=== PATIENT | male | born 1965 | race African-American/Black ===

== ENCOUNTER 2016-10-06 06:43 | Emergency (ER) | payer OTHER ==
[2016-10-06] MEDS ORDERED: LIDOCAINE 1% INJ-PF (10 MG/ML) 30 ML SDV INJ ONE (08:18)
--- NOTE | 2016-10-06 10:31 | ER Document Report ---
ED Skin Rash/Insect Bite/Abscs - General Chief Complaint: Abscess Stated Complaint: BACK PAIN Mode of Arrival: Ambulatory Information source: Patient Notes: 51 y/o M presents to ED c/o abscess to upper back. Pt reports noted pimple-like area to upper back approximately 3 weeks ago which has persisted and slowly increased in size. Reports yesterday evening his "popped" it and white foul smelling drainage came out of it. States area is plug overwrap machine tender and intermittently draining. Denies fever, chest pain, or sob. States last tetanus vaccination was approximately 6 months ago. TRAVEL OUTSIDE OF THE [place] IN LAST 30 DAYS: No - HPI Patient complains to provider of: Tender/swollen area Quality of pain: Achy Severity: Mild Pain Level: 1 Skin Character: Abscess, Erythema, Tenderness Skin Temperature: Warm Quality of rash: Painful Similar symptoms previously: Yes Recently seen / treated by doctor: No - Related Data Allergies/Adverse Reactions: No Known Allergies Allergy (Unverified 10/06/16 07:59) Past Medical History - General Information source: Patient - Social History Smoking Status: Never Smoker Chew tobacco use (# tins/day): No Frequency of alcohol use: None Drug Abuse: None Lives with: Family Family History: Reviewed & Not Pertinent Patient has suicidal ideation: No Patient has homicidal ideation: No - Past Medical History Cardiac Medical History: Reports: Hx Hypertension Renal/ Medical History: Denies: Hx Peritoneal Dialysis Surgical Hx: Negative - Immunizations Hx Diphtheria, Pertussis, Tetanus Vaccination: Yes Review of Systems - Review of Systems Constitutional: No symptoms reported EENT: No symptoms reported Cardiovascular: No symptoms reported Respiratory: No symptoms reported Gastrointestinal: No symptoms reported Genitourinary: No symptoms reported Male Genitourinary: No symptoms reported Musculoskeletal: No symptoms reported Skin: See HPI Hematologic/Lymphatic: No symptoms reported Neurological/Psychological: No symptoms reported -: Yes All other systems reviewed and negative Physical Exam - Vital signs Vitals: Temp Pulse Resp BP Pulse Ox 97.7 F 80 18 154/88 H 99 10/06/16 06:48 10/06/16 06:48 10/06/16 06:48 10/06/16 06:48 10/06/16 06:48 - General General appearance: Appears well, Alert In distress: None - HEENT Head: Normocephalic, Atraumatic Eyes: Normal Pupils: PERRL - Respiratory Respiratory status: No respiratory distress Chest status: Nontender Breath sounds: Normal Chest palpation: Normal - Cardiovascular Rhythm: Regular Heart sounds: Normal auscultation Murmur: No Pulses: Normal: Radial Normal capillary refill: Yes - Abdominal Inspection: Normal Distension: No distension Bowel sounds: Normal Tenderness: Nontender Organomegaly: No organomegaly - Back Back: Normal, Nontender, Other - pt has small approximately 2 cm diameter raised area of tenderness and slight central fluctuance. no active drainage or surrounding cellulitis. - Extremities General upper extremity: Normal inspection, Nontender, Normal color, Normal ROM , Normal temperature General lower extremity: Normal inspection, Nontender, Normal color, Normal ROM , Normal temperature, Normal weight bearing - Neurological Neuro grossly intact: Yes Cognition: Normal Orientation: AAOx4 Barry Coma Scale Eye Opening: Spontaneous Kwesi Coma Scale Verbal: Oriented Kwesi Coma Scale Motor: Obeys Commands Barry Coma Scale Total: 15 Speech: Normal Motor strength normal: LUE, RUE, LLE, RLE Sensory: Normal - Skin Skin Temperature: Warm Skin Moisture: Dry Skin Color: Normal Course - Re-evaluation Re-evalutation: 10/06/16 10:30 Patient hemodynamically stable, in no distress, afebrile. Small abscess I&D'd. Noted no drainage to culture and small abscess not large enough to pack. No surrounding cellulitis. Patient appears stable for discharge and agrees with home care, follow-up, and ED return precautions. - Vital Signs Vital signs: Temp Pulse Resp BP Pulse Ox 97.8 F 76 16 136/88 H 98 10/06/16 10:48 10/06/16 10:48 10/06/16 10:48 10/06/16 10:48 10/06/16 10:48 Procedures - Incision and Drainage Right Upper Back Time completed: 10:30 Type: Simple Anesthetic type: 1% Lidocaine mL's of anesthetic: 3 Blade size: 11 I&D procedure: Betadine prep applied, Shurclens applied, Sterile dressing applied Incision Method: Incision made by scalpel Amount/type of drainage: scant purulent Adult Front & Back picture: 1 - abscess Discharge - Discharge Clinical Impression: Abscess Condition: Stable Disposition: HOME, SELF-CARE Additional Instructions: ABSCESS: You have an abscess (boil). This a pus-forming infection, usually due to staph. Some boils may be left to drain on their own, but most require lancing. From the time the tender lump first appears, it may be three or four days before the abscess is ready to raffi. Local heat and rest help at this stage of treatment. An antibiotic may prevent spread of the infection. Once the abscess is opened, packing may be placed into it. This is done so pus is not sealed inside by premature closure of the cavity. The packing will be removed at your follow-up visit or you may be advised to remove it yourself at home. Sometimes this packing must be replaced a few times during healing. The wound will heal with surprisingly little scar. Depending on the size and location of an abscess, healing can take one to four weeks. You may shower and wash the area around the incision site two or three times a day. Antibiotics may be prescribed, but are usually not necessary after an abscess has been drained. If you develop fever, chills, worsening pain, or increasing swelling in the area, call the doctor or return immediately. CEPHALEXIN: The antibiotic you've been prescribed is a member of the cephalosporin class. This type of antibiotic covers a wide variety of infections, including those of the skin, lungs, and urinary tract. It's useful for staph infections. This antibiotic is slightly similar to the penicillin family. In rare cases , a person who is allergic to penicillin will also be allergic to this medication. If you have had a severe allergic reaction to penicillin, and have not taken this antibiotic since that time, notify your doctor. Antibiotics which cover many germs ("broad spectrum" antibiotics) are more likely to cause diarrhea or "yeast" infections. Women prone to vaginal yeast problems may suffer an attack after taking this antibiotic. In infants, oral thrush (white spots "stuck" on the cheek) or yeast diaper rash may result. See your doctor if these problems occur. Call at once if you develop itching, hives , shortness of breath, or lightheadedness. Anti-Inflammatory Medication You have received a prescription for an antiinflammatory agent. This is an excellent, safe drug for pain control. In addition, it has potent antiinflammatory effects which are beneficial, especially in the treatment of injuries, arthritis, or tendonitis. It's best to take this medicine with food. Persons with ulcer disease or allergy to aspirin should notify their physician of this before taking this drug. Take the medication exactly as prescribed. Don't take additional doses unless instructed to do so by your doctor. If you develop wheezing, shortness of breath, hives, faintness, stomach pain, vomiting, or dark black stools, return for re-evaluation at once. FOLLOW-UP CARE: Follow-up with your primary care provider in 1-2 days. If you experience worsening or a significant change in your symptoms, return to the Emergency Department at any time for re-evaluation. Prescriptions: Cephalexin Monohydrate [Keflex 500 mg Capsule] 500 mg PO Q6H 5 Days Naproxen [Naprosyn 375 Mg Tablet] 375 mg PO BIDP PRN #10 tablet PRN Reason: Forms: Elevated Blood Pressure, Return to Work Referrals: LONNY ADAMS MD [Primary Care Provider] - Follow up tomorrow
[2016-10-06 10:56] VITALS: BP 136/88
== END 2016-10-06 10:57 | disposition home or self-care (01) ==
LOC: ER 06:43
PROC: 0H96XZZ Drainage of Back Skin, External Approach (ICD-10-PCS; principal; 2016-10-06)
DX: L02.212 Cutaneous abscess of back [any part, except buttock and flank] (principal); I10 Essential (primary) hypertension
CPT/HCPCS: 99283; 10060; J3490

== ENCOUNTER 2016-11-25 10:08 | Emergency (ER) | payer OTHER ==
[2016-11-25 10:19] VITALS: BP 120/74
--- NOTE | 2016-11-25 10:30 | ER Document Report ---
ED Medical Screen (RME) - General Chief Complaint: Back Pain Stated Complaint: BACK PAIN /NUMB FINGERS Time Seen by Provider: 11/25/16 10:26 Mode of Arrival: Ambulatory Information source: Patient Notes: Patient presents emergency department with complaints of upper generalized back pain. He also reports that his second and third finger on his right hand are numb at times. 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 Denies trauma. Denies history of neck trauma, denies neck pain. 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 Denies other symptoms such as fever vomiting diarrhea. Denies urinary or bowel incontinence or retention. TRAVEL OUTSIDE OF THE [place] IN LAST 30 DAYS: No - Related Data Allergies/Adverse Reactions: No Known Allergies Allergy (Unverified 10/06/16 07:59) Past Medical History - Past Medical History Cardiac Medical History: Reports: Hx Hypertension Renal/ Medical History: Denies: Hx Peritoneal Dialysis Musculoskeltal Medical History: Reports Hx Arthritis - Immunizations Hx Diphtheria, Pertussis, Tetanus Vaccination: No Physical Exam - Vital signs Vitals: Temp Pulse Resp BP Pulse Ox 97.9 F 83 18 120/74 97 11/25/16 10:16 11/25/16 10:16 11/25/16 10:16 11/25/16 10:16 11/25/16 10:16 Course - Vital Signs Vital signs: Temp Pulse Resp BP Pulse Ox 97.9 F 83 18 120/74 97 11/25/16 10:16 11/25/16 10:16 11/25/16 10:16 11/25/16 10:16 11/25/16 10:16
--- NOTE | 2016-11-25 10:54 | ER Document Report ---
HPI - HPI Patient complains to provider of: generalized upper back pain Onset: Other - chronic Quality of pain: Achy Severity: Severe Pain Level: 4 Context: Patient presents to emergency department with complaints of generalized upper back pain. The back pain seemed to get worse after recent treatment for an abscess. Reports he has had the back pain for a while. It started in the left shoulder, moved to the right shoulder and now it is generalized. Reports he works lifting his arms a lot. Denies recent trauma , reports hx of fractured collar when he played football in high school. Denies other sx such as f/n/v/d. Reports the fingertips of 2 & 3 on the right hand are numb. He his right handed and works with his hands a lot. Denies hx of neck trauma. Associated Symptoms: None Exacerbated by: Denies Relieved by: Denies Similar symptoms previously: Yes Recently seen / treated by doctor: No - REPRODUCTIVE Reproductive: DENIES: : - DERM Skin Color: Normal Past Medical History - General Information source: Patient - Social History Smoking Status: Current Some Day Smoker Cigarette use (# per day): Yes Frequency of alcohol use: Occasional Drug Abuse: None Occupation: [employer] Lives with: Family Family History: Reviewed & Not Pertinent Patient has suicidal ideation: No Patient has homicidal ideation: No - Past Medical History Cardiac Medical History: Reports: Hx Hypertension Renal/ Medical History: Denies: Hx Peritoneal Dialysis Musculoskeltal Medical History: Reports Hx Arthritis Surgical Hx: Negative - Immunizations Hx Diphtheria, Pertussis, Tetanus Vaccination: No Vertical Provider Document - CONSTITUTIONAL Agree With Documented VS: Yes Exam Limitations: No Limitations General Appearance: WD/WN, No Apparent Distress - nontoxic looking - INFECTION CONTROL TRAVEL OUTSIDE OF THE [place] IN LAST 30 DAYS: No - HEENT HEENT: Atraumatic, Normocephalic - NECK Neck: Normal Inspection, Supple. negative: Lymphadenopathy-Left, Lymphadenopathy-Right - RESPIRATORY Respiratory: Breath Sounds Normal, No Respiratory Distress O2 Sat by Pulse Oximetry: 97 - CARDIOVASCULAR Cardiovascular: Regular Rate, Regular Rhythm - GI/ABDOMEN Gastrointestinal: Abdomen Soft, Abdomen Non-Tender - REPRODUCTIVE Male Genitalia: Normal Inspection - BACK Back: Normal Inspection - no obvious defomity, good distal movement and sensation, no erythema/warmth/swelling c/o bilateral trapezius ttp and movement - MUSCULOSKELETAL/EXTREMETIES Musculoskeletal/Extremeties: MAEW, FROM, Non-Tender - finger tips to right hand , 2 & 3 calloused, no open wounds - NEURO Level of Consciousness: Awake, Alert, Appropriate Motor/Sensory: No Motor Deficit, Other - symetric facial expressions, clear voice, 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 No sign of CVA, good clear voice, no weakness, good shearer helper, felt me palpating his finger tips. The patient presents with generalized upper back pain without signs of spinal cord compression, cauda equine syndrome, infection, aneurysm, or other serious etiology. The patient is neurologically intact. The patient has good distal movement and sensation, denies urinary or bowel incontinence/retention. Given the extremely low risk of these diagnosis, further testing and evaluation for these possibilities does not appear to be indicated at this time. The patient has been instructed to return if the symptoms worsen or change in anyway. - Vital Signs Vital signs: Temp Pulse Resp BP Pulse Ox 97.9 F 83 18 120/74 97 11/25/16 10:16 11/25/16 10:16 11/25/16 10:16 11/25/16 10:16 11/25/16 10:16 Discharge - Discharge Clinical Impression: Upper back pain Condition: Stable Disposition: HOME, SELF-CARE Instructions: Muscle Strain ([facility]), Muscle Relaxers ([facility]) Additional Instructions: *You have been evaluated for generalized upper back pain *Take medication as prescribed *Rest *Follow up with your primary care provider this week for recheck *Return to ED for worsening condition, changes, needs Prescriptions: Cyclobenzaprine HCl [Flexeril 10 Mg Tablet] 10 mg PO TID #30 tablet Forms: Return to Work Referrals: LONNY ADAMS MD [Primary Care Provider] - Follow up as needed
== END 2016-11-25 11:19 | disposition home or self-care (01) ==
LOC: ER 10:08
DX: M54.89 Other dorsalgia (principal); F17.210 Nicotine dependence, cigarettes, uncomplicated; I10 Essential (primary) hypertension
CPT/HCPCS: 99283

== ENCOUNTER 2016-12-14 19:17 | Emergency (ER) | payer OTHER ==
[2016-12-14 19:47] VITALS: BP 111/55
[2016-12-14] MEDS ORDERED: KETOROLAC TROMETHAMINE 60 MG/2 ML SDV IM ONE (20:52)
--- NOTE | 2016-12-14 20:56 | ER Document Report ---
ED Neck/Back Problem - General Chief Complaint: Back Pain Stated Complaint: BACK PAIN Time Seen by Provider: 12/14/16 20:45 Mode of Arrival: Ambulatory Information source: Patient Notes: Patient is a 51-year-old male who presents to the ER today for right shoulder, arm pain that he has been here for before. Patient states that he took all of his muscle relaxers that he has received here but that he has had no relief. He denies any injury. He admits to numbness and tingling in the fingers and most of his pain concentrated in the shoulder and elbow. He has not seen anyone else for this. He states that this has been going on for 3-4 months. TRAVEL OUTSIDE OF THE [place] IN LAST 30 DAYS: No - Related Data Allergies/Adverse Reactions: No Known Allergies Allergy (Unverified 10/06/16 07:59) Past Medical History - General Information source: Patient - Social History Smoking Status: Current Every Day Smoker Family History: Reviewed & Not Pertinent - Past Medical History Cardiac Medical History: Reports: Hx Hypertension Renal/ Medical History: Denies: Hx Peritoneal Dialysis Musculoskeltal Medical History: Reports Hx Arthritis - Immunizations Hx Diphtheria, Pertussis, Tetanus Vaccination: No Review of Systems - Review of Systems Constitutional: No symptoms reported EENT: No symptoms reported Cardiovascular: No symptoms reported Respiratory: No symptoms reported Gastrointestinal: No symptoms reported Genitourinary: No symptoms reported Male Genitourinary: No symptoms reported Musculoskeletal: See HPI Skin: No symptoms reported Hematologic/Lymphatic: No symptoms reported Neurological/Psychological: No symptoms reported Physical Exam - Vital signs Vitals: Temp Pulse Resp BP Pulse Ox 97.7 F 95 16 111/55 L 95 12/14/16 19:45 12/14/16 19:45 12/14/16 19:45 12/14/16 19:45 12/14/16 19:45 - Notes Notes: PHYSICAL EXAMINATION: GENERAL: Well-appearing and in no acute distress. HEAD: Atraumatic, normocephalic. EYES: Pupils equal round and reactive to light, extraocular movements intact, sclera anicteric, conjunctiva are normal. NECK: Normal range of motion, supple without lymphadenopathy LUNGS: CTAB and equal. No wheezes rales or rhonchi. HEART: Regular rate and rhythm without murmurs ABDOMEN: Soft, no tenderness. No guarding, no rebound BACK: no vertebral tenderness, normal ROM GI/: no CVA tenderness EXTREMITIES: Normal range of motion, nontender to the entire right arm shoulder , hand, no pitting edema. No cyanosis. NEUROLOGICAL: Cranial nerves grossly intact. Normal sensory/motor exams. PSYCH: Normal mood, normal affect. SKIN: Warm, Dry, normal turgor, no rashes or lesions noted Course - Vital Signs Vital signs: Temp Pulse Resp BP Pulse Ox 97.7 F 95 16 111/55 L 95 12/14/16 19:45 12/14/16 19:45 12/14/16 19:45 12/14/16 19:45 12/14/16 19:45 Discharge - Discharge Clinical Impression: Numbness of right hand Right shoulder pain Qualifiers: Chronicity: acute Qualified Code(s): M25.511 - Pain in right shoulder Condition: Stable Disposition: HOME, SELF-CARE Additional Instructions: Return immediately for any new or worsening symptoms. Follow up with orthopedics, call tomorrow to make followup appointment. Orthopedic Office [facility] [address] [place] [address] [place] [id number] phone: [phone] Prescriptions: Ibuprofen [Motrin 800 mg Tablet] 800 mg PO Q8H PRN #30 tab PRN Reason:
== END 2016-12-14 22:04 | disposition home or self-care (01) ==
LOC: ER 19:17
DX: M25.511 Pain in right shoulder (principal); R20.0 Anesthesia of skin; R20.2 Paresthesia of skin; M25.529 Pain in unspecified elbow; F17.200 Nicotine dependence, unspecified, uncomplicated; I10 Essential (primary) hypertension
CPT/HCPCS: 99283; 96374; J1885

== ENCOUNTER 2017-05-31 16:40 | Emergency (ER) | payer SELFPAY | END 2017-05-31 16:45 | disposition left against medical advice (07) | LOC: ER 16:40 | DX: Z53.21 Procedure and treatment not carried out due to patient leaving prior to being seen by health care provider (principal) ==

== ENCOUNTER 2017-06-02 22:24 | Emergency (ER) | payer SELFPAY ==
--- NOTE | 2017-06-03 00:36 | ER Document Report ---
ED Medical Screen (RME) - General Chief Complaint: Penile Pain Stated Complaint: PENIS PAIN Time Seen by Provider: 06/03/17 00:34 Mode of Arrival: Ambulatory Information source: Patient Notes: 51-year-old male presents to ED for 2 weeks history of pain in penis with clear discharge. He has had unprotected sex recently. States he smokes 7-8 cigarettes a day drinks 12 beers 4-5 times a week. He then stated that he had some indigestion on his belly, burped, passed gas, and then leak but he has been doing this for 2 weeks. I have greeted and performed a rapid initial assessment of this patient. A comprehensive ED assessment and evaluation of the patient, analysis of test results and completion of medical decision making process will be conducted by an additional ED providers. TRAVEL OUTSIDE OF THE [place] IN LAST 30 DAYS: No - Related Data Allergies/Adverse Reactions: No Known Allergies Allergy (Unverified 10/06/16 07:59) Past Medical History - Past Medical History Cardiac Medical History: Reports: Hx Hypertension Renal/ Medical History: Denies: Hx Peritoneal Dialysis Musculoskeltal Medical History: Reports Hx Arthritis - Immunizations Hx Diphtheria, Pertussis, Tetanus Vaccination: No Physical Exam - Vital signs Vitals: Temp Pulse Resp BP Pulse Ox 97.7 F 86 18 115/71 95 06/02/17 22:54 06/02/17 22:54 06/02/17 22:54 06/02/17 22:54 06/02/17 22:54 Course - Vital Signs Vital signs: Temp Pulse Resp BP Pulse Ox 97.7 F 86 18 115/71 95 06/02/17 22:54 06/02/17 22:54 06/02/17 22:54 06/02/17 22:54 06/02/17 22:54
[2017-06-03] MEDS ORDERED: LIDOCAINE 1% INJ-PF (10 MG/ML) 30 ML SDV INFIL ONE (02:05)
[2017-06-03] MEDS ORDERED: CEFTRIAXONE INJ 250 MG VIAL IM ONE (02:05)
[2017-06-03] MEDS ORDERED: AZITHROMYCIN 250 MG TABLET PO ONE (02:05)
--- NOTE | 2017-06-03 02:08 | ER Document Report ---
ED General - General Chief Complaint: Penile Pain Stated Complaint: PENIS PAIN Time Seen by Provider: 06/03/17 00:34 Mode of Arrival: Ambulatory Notes: Patient is a 51-year-old male who presents with 2 weeks of penile discharge and burning discomfort. Patient notes that the symptoms started after he had unprotected sexual intercourse with an unfamiliar partner. Symptoms have been constant and unchanged since onset. He notes that there is a moderate, constant , burning discomfort to the urethral meatus. He intermittently has a whitish, yellow discharge from the urethral meatus. He denies any fever or constitutional symptoms. He denies any abdominal pain. No history of similar symptoms in the past. TRAVEL OUTSIDE OF THE [place] IN LAST 30 DAYS: No - Related Data Allergies/Adverse Reactions: No Known Allergies Allergy (Verified 06/03/17 01:27) Past Medical History - General Information source: Patient - Social History Smoking Status: Never Smoker Frequency of alcohol use: None Drug Abuse: None Lives with: Family Family History: Reviewed & Not Pertinent Patient has suicidal ideation: No Patient has homicidal ideation: No - Past Medical History Cardiac Medical History: Reports: Hx Hypertension Renal/ Medical History: Denies: Hx Peritoneal Dialysis Musculoskeltal Medical History: Reports Hx Arthritis - Immunizations Hx Diphtheria, Pertussis, Tetanus Vaccination: No Review of Systems - Review of Systems Notes: Constitutional: Negative for fever. HENT: Negative for sore throat. Eyes: Negative for visual changes. Cardiovascular: Negative for chest pain. Respiratory: Negative for shortness of breath. Gastrointestinal: Negative for abdominal pain, vomiting or diarrhea. Genitourinary: Positive for dysuria and penile discharge Musculoskeletal: Negative for back pain. Skin: Negative for rash. Neurological: Negative for headaches, weakness or numbness. 10 point ROS negative except as marked above and in HPI. Physical Exam - Vital signs Vitals: Temp Pulse Resp BP Pulse Ox 97.7 F 86 18 115/71 95 06/02/17 22:54 06/02/17 22:54 06/02/17 22:54 06/02/17 22:54 06/02/17 22:54 Interpretation: Normal Notes: PHYSICAL EXAMINATION: GENERAL: Well-appearing, well-nourished and in no acute distress. HEAD: Atraumatic, normocephalic. EYES: Pupils equal round and reactive to light, extraocular movements intact, sclera anicteric, conjunctiva are normal. ENT: nares patent, oropharynx clear without exudates. Moist mucous membranes. NECK: Normal range of motion, supple without lymphadenopathy LUNGS: Breath sounds clear to auscultation bilaterally and equal. No wheezes rales or rhonchi. HEART: Regular rate and rhythm without murmurs ABDOMEN: Soft, nontender, normoactive bowel sounds. No guarding, no rebound. No masses appreciated. : Uncircumcised penis. There is no discharge from the urethral meatus. No penile or scrotal lesions. EXTREMITIES: Normal range of motion, no pitting or edema. No cyanosis. NEUROLOGICAL: No focal neurological deficits. Moves all extremities spontaneously and on command. PSYCH: Normal mood, normal affect. SKIN: Warm, Dry, normal turgor, no rashes or lesions noted. Course - Re-evaluation Re-evalutation: 06/03/17 02:07 Patient presents with penile discharge and burning for the past 2 weeks after having intercourse with an unfamiliar partner. Clinically suspect a sexually transmitted infection. Penile exam is unremarkable without any lesions, pustules or evidence of a canker. Patient is otherwise well in appearance, no additional findings on examination. Patient has been empirically treated with ceftriaxone and azithromycin. Safe sex practices have been discussed. At this time will discharge with return precautions and follow-up recommendations. Verbal discharge instructions given a the bedside and opportunity for questions given. Medication warnings reviewed. Patient is in agreement with this plan and has verbalized understanding of return precautions and the need for primary care follow-up in the next 24-72 hours. - Vital Signs Vital signs: Temp Pulse Resp BP Pulse Ox 97.7 F 86 18 115/71 95 06/02/17 22:54 06/02/17 22:54 06/02/17 22:54 06/02/17 22:54 06/02/17 22:54 Discharge - Discharge Clinical Impression: Dysuria, Penile discharge Condition: Good Disposition: HOME, SELF-CARE Additional Instructions: You need to use protection every time you have sex. Failure to do so can result in transmission of infections or unintended . You have been treated for an sexually transmitted infection (STI) today. All of your partners should be tested and treated as they are also likely to be infected. Please return if you develop abdominal pain, fever, persistent vomiting, or any other symptoms that are concerning to you.
[2017-06-03 02:11] LABS: APPEARANCE,URINE CLEAR; BILIRUBIN,URINE NEGATIVE (NEGATIVE); GLUCOSE, URINE NEGATIVE (NEGATIVE); KETONES,URINE NEGATIVE (NEGATIVE); LEUKOCYTE ESTERASE,URINE NEGATIVE (NEGATIVE); NITRITE,URINE NEGATIVE (NEGATIVE); PROTEIN,URINE NEGATIVE (NEGATIVE); URINE SPECIFIC GRAVITY 1.015; UROBILINOGEN,URINE NEGATIVE mg/dL (<2.0)
[2017-06-03 02:18] LABS: RBC,URINE NONE SEEN /HPF; WBC,URINE 0-1 /HPF
[2017-06-03 02:38] VITALS: BP 125/77
== END 2017-06-03 02:50 | disposition home or self-care (01) ==
LOC: ER 22:24
DX: R30.0 Dysuria (principal); N48.89 Other specified disorders of penis; I10 Essential (primary) hypertension
CPT/HCPCS: 99283; 81001; 87491; 87591; J3490; J0696

== ENCOUNTER 2017-11-10 14:30 | Emergency (ER) | payer SELFPAY ==
[2017-11-10 14:40] VITALS: BP 147/88
--- NOTE | 2017-11-10 15:02 | ER Document Report ---
HPI - HPI Patient complains to provider of: Left hip and leg pain Onset: Other - 5 days Onset/Duration: Persistent Quality of pain: Achy Pain Level: 5 Context: She presents complaining of left hip pain that radiates down the lateral aspect of his left lower extremity to the level of his foot. Patient denies any back tenderness. Patient denies any fever. Patient denies any urinary retention or incontinence. Associated Symptoms: Other - Left lower extremity pain. denies: Fever Exacerbated by: Movement Relieved by: Denies Similar symptoms previously: Yes Recently seen / treated by doctor: No - ROS ROS below otherwise negative: Yes Systems Reviewed and Negative: Yes All other systems reviewed and negative - CONSTITUTIONAL Constitutional: DENIES: Fever, Chills - GASTROINTESTINAL Gastrointestinal: DENIES: Nausea - REPRODUCTIVE Reproductive: DENIES: : - MUSCULOSKELETAL Musculoskeletal: REPORTS: Extremity pain - DERM Skin Color: Normal Skin Problems: None Past Medical History - General Information source: Patient - Social History Smoking Status: Current Every Day Smoker Smoking Education Provided: Yes Frequency of alcohol use: None Drug Abuse: None 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 IN LAST 30 DAYS: No - HEENT HEENT: Atraumatic, Normocephalic - NECK Neck: Normal Inspection - RESPIRATORY Respiratory: Breath Sounds Normal, No Respiratory Distress - CARDIOVASCULAR Cardiovascular: Regular Rate, Regular Rhythm - BACK Notes: No lumbar midline spinal tenderness, step-off or deformity, patient with left SI joint tenderness - MUSCULOSKELETAL/EXTREMETIES Musculoskeletal/Extremeties: MAEW, FROM, Tender - Left - NEURO Level of Consciousness: Awake, Alert, Appropriate Motor/Sensory: No Motor Deficit, No Sensory Deficit Notes: Normal gait, no saddle anesthesia, no footdrop - DERM Integumentary: Warm, Dry, No Rash Course - Re-evaluation Re-evalutation: 11/10/17 15:00 The patient presents with low back pain without signs of spinal cord compression , cauda equina syndrome, infection, aneurysm, or other serious etiology. The patient is neurologically intact. Given the extremely risk of these diagnoses further testing and evaluation for these possibilities does not appear to be indicated at this time. Patient has been instructed to return if the symptoms worsen or change in any way. - Vital Signs Vital signs: Temp Pulse Resp BP Pulse Ox 98.9 F 82 17 147/88 H 96 11/10/17 14:34 11/10/17 14:34 11/10/17 14:34 11/10/17 14:34 11/10/17 14:34 Discharge - Discharge Clinical Impression: Sciatica Qualifiers: Laterality: left Qualified Code(s): M54.32 - Sciatica, left side Condition: Stable Disposition: HOME, SELF-CARE Instructions: Oral Narcotic Medication ([facility]), Sciatica ([facility]), Steroid Medication Additional Instructions: Return immediately for any new or worsening symptoms Followup with your primary care provider, call tomorrow to make a followup appointment Prescriptions: Oxycodone HCl/Acetaminophen [Percocet 5-325 mg Tablet] 1 tab PO ASDIR PRN #15 tablet PRN Reason: Prednisone [Deltasone 20 mg Tablet] 3 tab PO DAILY 5 Days tablet Forms: Smoking Cessation Education, Return to Work Referrals: LONNY ADAMS MD [NO LOCAL MD] - Follow up as needed
== END 2017-11-10 15:05 | disposition home or self-care (01) ==
LOC: ER 14:30
DX: M54.32 Sciatica, left side (principal); M25.552 Pain in left hip; F17.210 Nicotine dependence, cigarettes, uncomplicated; I10 Essential (primary) hypertension
CPT/HCPCS: 99283

== ENCOUNTER 2018-01-03 18:46 | Emergency (ER) | payer OTHER ==
[2018-01-03 18:54] VITALS: BP 144/90
--- NOTE | 2018-01-03 20:10 | ER Document Report ---
ED Extremity Problem, Lower - General Chief Complaint: Knee Pain Stated Complaint: RIGHT LEG PAIN Time Seen by Provider: 01/03/18 19:59 Mode of Arrival: Ambulatory Information source: Patient Notes: 52-year-old male presents to ED for complaint of right knee pain. He states he injured it at work Thursday or Thursday of last week. He states that he has been working on it since then but the pain has been increasing and swelling has increased. He states he has not followed up or been seen by a provider since he injured the knee. He states he bumped it against a table at work. He states he has used ice on it a couple times and is taking a couple ibuprofen since then but neither one helped. Patient is alert and oriented respirations regular unlabored speaks in full sentences and is able to walk has a small on the right leg. Patient has had a knee x-ray but we do not have the results as yet. TRAVEL OUTSIDE OF THE [place] IN LAST 30 DAYS: No - HPI Patient complains to provider of: Injury, Pain, Swelling Location: Knee - Right Occurred: Last week Where: Work Onset/Duration: Gradual, Worse Quality of pain: Achy, Sharp Severity: Severe Pain Level: 5 Context: Other - States he hit his knee on a table Recent injury: Yes Associated symptoms: Painful ambulation Exacerbated by: Hanging down, Movement, Walking Relieved by: Nothing - Related Data Allergies/Adverse Reactions: No Known Allergies Allergy (Verified 11/10/17 14:32) Past Medical History - General Information source: Patient - Social History Smoking Status: Current Some Day Smoker - States he smokes 2-3 times a week only when he drinks Cigarette use (# per day): Yes Smoking Education Provided: Yes - 4 minutes Frequency of alcohol use: Social - 2-3 times a week Drug Abuse: None 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 [employer] Lives with: Parents Family History: Reviewed & Not Pertinent - Past Medical History Cardiac Medical History: Reports: Hx Hypertension Pulmonary Medical History: Reports: None EENT Medical History: Reports: None Neurological Medical History: Reports: None Endocrine Medical History: Reports: None Renal/ Medical History: Reports: None Malignancy Medical History: Reports None GI Medical History: Reports: None Musculoskeltal Medical History: Reports Hx Arthritis Skin Medical History: Reports None Psychiatric Medical History: Reports: None Traumatic Medical History: Reports: None Infectious Medical History: Reports: None Surgical Hx: Negative Past Surgical History: Reports: None - Immunizations Hx Diphtheria, Pertussis, Tetanus Vaccination: No Review of Systems - Review of Systems Constitutional: No symptoms reported EENT: No symptoms reported Cardiovascular: No symptoms reported Respiratory: No symptoms reported Gastrointestinal: No symptoms reported Genitourinary: No symptoms reported Male Genitourinary: No symptoms reported Musculoskeletal: Joint pain - Right knee, Joint swelling - Right knee Skin: No symptoms reported Hematologic/Lymphatic: No symptoms reported Neurological/Psychological: No symptoms reported -: Yes All other systems reviewed and negative Physical Exam - Vital signs Vitals: Temp Pulse Resp BP Pulse Ox 98.5 F 87 16 144/90 H 96 01/03/18 18:52 01/03/18 18:52 01/03/18 18:52 01/03/18 18:52 01/03/18 18:52 Interpretation: Normal - General General appearance: Appears well, Alert - HEENT Head: Normocephalic, Atraumatic Eyes: Normal Pupils: PERRL - Respiratory Respiratory status: No respiratory distress Chest status: Nontender Breath sounds: Normal Chest palpation: Normal - Cardiovascular Rhythm: Regular Heart sounds: Normal auscultation Murmur: No - Abdominal Inspection: Normal Distension: No distension Bowel sounds: Normal Tenderness: Nontender Organomegaly: No organomegaly - Back Back: Normal, Nontender - Extremities General upper extremity: Normal inspection, Nontender, Normal color, Normal ROM , Normal temperature General lower extremity: Normal color, Normal ROM, Normal temperature, Normal weight bearing. No: Payal's sign Knee: Tender, Pain with ROM, Patellar tendon intact, Tender joint line, Other - Mild swelling. No: Abrasion, Deformity, Dislocation, Drawer's test instability , Ecchymosis, Instability, Joint effusion, Laceration, Laxity with valgus stress , Laxity with varus stress, Unable to bear weight - Neurological Neuro grossly intact: Yes Cognition: Normal Orientation: AAOx4 [place] Coma Scale Eye Opening: Spontaneous [place] Coma Scale Verbal: Oriented [place] Coma Scale Motor: Obeys Commands [place] Coma Scale Total: 15 Speech: Normal Motor strength normal: LUE, RUE, LLE, RLE Sensory: Normal - Psychological Associated symptoms: Normal affect, Normal mood - Skin Skin Temperature: Warm Skin Moisture: Dry Skin Color: Normal Course - Re-evaluation Re-evalutation: 01/03/18 20:45 X-ray results were discussed with patient. Written report given to patient to follow-up with his primary doctor. Patient is instructed to follow-up with orthopedics. Patient was treated with a knee immobilizer. He was offered ibuprofen but refused. He was offered crutches and he refused. Patient's x- ray did show 2 metallic BB type objects in his proximal fibula. He states he has had them since before college. No acute injuries noted on the x-ray. Patient was instructed to follow-up with orthopedics elevate and ice the knee. - Vital Signs Vital signs: Temp Pulse Resp BP Pulse Ox 98.5 F 87 16 144/90 H 96 01/03/18 18:52 01/03/18 18:52 01/03/18 18:52 01/03/18 18:52 01/03/18 18:52 - Diagnostic Test Radiology reviewed: Image reviewed, Reports reviewed Procedures - Immobilization Right Knee Time completed: 20:45 Immobilizer type: Crutches - Patient refused crutches, Knee immobilizer Performed by: PCT Post-Proc Neuro Vasc Exam: Normal Alignment checked and good: Yes Discharge - Discharge Clinical Impression: Right knee injury Qualifiers: Encounter type: initial encounter Qualified Code(s): S89.91XA - Unspecified injury of right lower leg, initial encounter Condition: Stable Disposition: HOME, SELF-CARE Additional Instructions: SUSPECTED INTERNAL KNEE INJURY: The examiner of your injured knee suspects an internal injury to the cartilage or internal ligaments. This must be further investigated by an music specialist. The knee should be protected, ice packed, and elevated while awaiting your follow-up exam by the orthopedist. If there is severe swelling, severe pain, or any new symptoms while awaiting your exam, you should call the orthopedist. (If he/she is unavailable, call us or return for re-examination.) KNEE IMMOBILIZING SPLINT: The knee immobilizing splint will protect the injury while healing begins. This type of splint does not allow the knee to bend at all. No running or sports will be possible. If the splint allows painfree walking, it's giving adequate protection. If there is still significant pain, crutches may be needed as well. Don't do anything that hurts. Adjusted the splint, if necessary. The stiffeners on the sides are attached with Velcro, so they can be easily moved to adjust for thigh and calf size. If you need help with these adjustments, come back. You will lose muscle strength in the thigh while using this splint. The doctor will advise you if it's safe to do isometric knee exercises while you use it. USE OF CRUTCHES: The doctor has recommended that you not bear weight at this time. You will need to use crutches. Adjust the crutches so the tops come to about two inches under the armpit while you are standing upright. Use your hands -- not your armpits -- to support your weight. To get into a chair, support yourself with one crutch on the injured side. Hold the chair with the other hand, then lower yourself while putting all your weight on the good leg. Going up stairs is `good leg up, step up, then bring up crutches and bad leg.' Down stairs is `bad leg and crutches down, then bring good leg down.' If you develop numbness or swelling in an arm or hand, you are using the crutches incorrectly. Return if you are having any problems with the crutches. ICE & ELEVATION: Apply ice packs frequently against the painful area. Many different schedules are recommended, such as "20 minutes on, 20 minutes off" or "one hour ice, two hours rest." If you need to work, you may need to go longer between ice treatments. You should plan to have the area ice packed AT LEAST one- fourth of the time. The ice should be applied over the wrap, tape, or splint, or over a layer of cloth -- not directly against the skin. Some ice bags have a built-in cloth and can be put directly on the skin. Your injured part should be elevated as much as possible over the next 48 hours. Try to keep the injury above the level of the heart. Avoid use of the injured area. Elevation and rest will decrease the swelling. USE OF RMPS-FOR-DAZLOIR IBUPROFEN: Ibuprofen (Advil, Nuprin, Medipren, Motrin IB) is a medication for fever and pain control. In addition, it has anti- inflammatory effects which may be beneficial, especially in the treatment of injuries. It's best to take ibuprofen with food. Persons with ulcer disease or allergy to aspirin should notify their physician of this before taking ibuprofen. Ibuprofen can be given every four to six hours, for a total of four doses daily. Age Pain or fever dose Antiinflammatory dose 6-8 yr 200 mg (1 tab) 200 mg (1 tab) 9-11 yr 200 mg (1 tab) 200-400 mg (1-2 tab) 11-14 yr 200-400 mg (1-2 tab) 400 mg (2 tab) 15-adult 400 mg (2 tab) 600 mg (3 tab) FOLLOW-UP CARE: If you have been referred to a physician for follow-up care, call the physician s office for an appointment as you were instructed or within the next two days. If you experience worsening or a significant change in your symptoms, notify the physician immediately or return to the Emergency Department at any time for re-evaluation. Prescriptions: Ibuprofen 800 mg PO Q8HP PRN #20 tablet PRN Reason: Forms: Elevated Blood Pressure, Smoking Cessation Education, Return to Work Referrals: LONNY ADAMS MD [Primary Care Provider] - Follow up as needed SAHARA SINGH MD [ACTIVE STAFF] - Follow up as needed
--- NOTE | 2018-01-03 20:17 | RADIOLOGY REPORT (SQ) ---
EXAM DESCRIPTION: KNEE RIGHT 4 VIEWS COMPLETED DATE/TIME: 01/03/2018 7:46 pm REASON FOR STUDY: pain and injury COMPARISON: None. NUMBER OF VIEWS: Four views. TECHNIQUE: AP, lateral, and both oblique radiographic images acquired of the right knee. LIMITATIONS: None. FINDINGS: MINERALIZATION: Normal. BONES: No acute fracture or dislocation. No worrisome bone lesions. JOINT: Tiny effusion. SOFT TISSUES: 2 metallic BBs in the posterolateral soft tissue at the level of the proximal fibula, c orrelate clinically.. OTHER: No other significant finding. IMPRESSION: No fracture. Tiny joint effusion. 2 metallic BBs in the posterolateral soft tissue at the level of the proximal fibula, correlate clini imani. TECHNICAL DOCUMENTATION: JOB ID: [id number] [place]-72 2010 [employer]- All Rights Reserved Reading location - IP/workstation name: [email or web address]
== END 2018-01-03 20:48 | disposition home or self-care (01) ==
LOC: ER 18:46
DX: S89.91XA Unspecified injury of right lower leg, initial encounter (principal); W22.03XA Walked into furniture, initial encounter; Y99.0 Civilian activity done for income or pay; F17.210 Nicotine dependence, cigarettes, uncomplicated; I10 Essential (primary) hypertension
CPT/HCPCS: 99406; 99283; 73564; L1830